=== PATIENT | female | born 1980 | race African-American/Black ===

== ENCOUNTER 2023-07-01 19:05 | Emergency (ER) | payer OTHER ==
[2023-07-01 19:54] VITALS: TEMP 98.7; BMI 27.6
[2023-07-01 22:35] VITALS: BP 138/90; PULSE 88; RESP 18
== END 2023-07-01 22:42 | disposition home or self-care (01) ==
LOC: JER 19:05
DX: F10.129 Alcohol abuse with intoxication, unspecified (principal); R42 Dizziness and giddiness
CPT/HCPCS: 70450-TC; 82962; 84703; 93005; 93010; 99285-25